=== PATIENT | male | born 1985 | race Caucasian/White ===

== ENCOUNTER 2023-12-09 20:59 | Inpatient (IN) | payer OTHER ==
[~2023-12-09] VITALS: Ht 165.1 cm; Wt 215.9 kg
[2023-12-09] MEDS ORDERED: BUMETANIDE 1MG/4ML VIAL IV ONE (21:30)
[2023-12-09 22:37] LABS: BASOPHILS % 0.6 % (0.0-2.0); DIFFERENTIAL COMMENT 0; EOSINOPHILS % 0.7 % (0.0-5.0); HEMATOCRIT. 48.1 % (42.0-52.0); HEMOGLOBIN. 14.9 g/dL (14.0-18.0); LYMPHOCYTES % 18.6 % (20.0-50.0); MEAN CORPUSCULAR HEMOGLOBIN 29.4 pg (28.0-32.0); MEAN CORPUSCULAR VOLUME 94.9 fL (80.0-94.0); MEAN PLATELET VOLUME 10.4 fl (7.4-10.4); MONOCYTES % 7.1 % (2.0-8.0); PLATELET 184 x1000/uL (130-400); RED BLOOD CELL COUNT 5.07 mill/uL (4.7-6.1); RED CELL DISTRIBUTION WIDTH 16.7 % (11.6-14.6); WHITE BLOOD COUNT 13.4 x1000/uL (4.5-11.0)
[2023-12-09 22:47] LABS: INR 1.1; PROTHROMBIN TIME 11.9 sec (9.6-11.0)
[2023-12-09 22:52] LABS: CHLORIDE 99 mEq/L (98-107); POTASSIUM 4.1 mEq/L (3.5-5.1); SODIUM 142 mEq/L (136-145)
[2023-12-09 22:53] LABS: CALCIUM 9.2 mg/dL (8.7-10.4); CARBON DIOXIDE 39 mEq/L (21-32)
[2023-12-09 22:58] LABS: CREATININE 1.7 mg/dL (0.6-1.3); GLUCOSE 104 mg/dL (70-105); UREA NITROGEN BLOOD 20 mg/dL (9-23)
[2023-12-09 22:59] LABS: TROPONIN I HIGH SENSITIVITY 17 ng/L (3.0-53)
[2023-12-10] VITALS (9 sets, daily range): BP systolic 98–161; BP diastolic 62–122; PULSE 90–128; RESP 14–26; TEMP 97.8–98.2
[2023-12-10 00:20] LABS: TROPONIN I HIGH SENSITIVITY 16 ng/L (3.0-53)
[2023-12-10] MEDS: BUMETANIDE 1MG/4ML VIAL IV NR (00:30)
[2023-12-10] MEDS ORDERED: IPRATROPIUM/ALBUTEROL 0.5-3(2.5)MG/3ML NEB HHN PRN (04:15)
[2023-12-10] MEDS ORDERED: ONDANSETRON HCL 4MG/2ML INJ IV PRN (04:15)
[2023-12-10] MEDS ORDERED: ACETAMINOPHEN 325MG TABLET PO PRN (04:15)
[2023-12-10] MEDS ORDERED: DOCUSATE SODIUM 100MG CAPSULE PO PRN (04:15)
[2023-12-10] MEDS ORDERED: MAGNESIUM/ALUMINUM HYDROXIDE/SIMETHICONE 30ML UDC PO PRN (04:15)
[2023-12-10 06:30] LABS: HEMATOCRIT 47.6 % (42.0-52.0); HEMOGLOBIN 14.8 g/dL (14.0-18.0); MEAN CORPUSCULAR HEMOGLOBIN 29.5 pg (28.0-32.0); MEAN CORPUSCULAR VOLUME 95.2 fL (80.0-94.0); PLATELET 188 x1000/uL (130-400); RED CELL DISTRIBUTION WIDTH 16.6 % (11.6-14.6); WHITE BLOOD COUNT 11.8 x1000/uL (4.5-11.0)
[2023-12-10 06:44] LABS: CHLORIDE 101 mEq/L (98-107); POTASSIUM 3.8 mEq/L (3.5-5.1); SODIUM 145 mEq/L (136-145)
[2023-12-10 06:45] LABS: CALCIUM 9.6 mg/dL (8.7-10.4)
[2023-12-10 06:50] LABS: CREATININE 1.1 mg/dL (0.6-1.3); GLUCOSE 102 mg/dL (70-105); TRIGLYCERIDE 86 mg/dL (0-150); UREA NITROGEN BLOOD 17 mg/dL (9-23)
[2023-12-10 06:51] LABS: LDL CHOLESTEROL 125 mg/dL (5-100)
[2023-12-10 06:52] LABS: CHOLESTEROL 168 mg/dL (<200); HDL CHOLESTEROL 32 mg/dL (>55); PHOSPHORUS 5.8 mg/dL (2.5-4.9)
[2023-12-10 06:53] LABS: T4 FREE 1.03 ng/dL (0.89-1.76); THYROID STIMULATING HORMONE 1.62 uIU/mL (0.55-4.78)
[2023-12-10 07:09] LABS: CLARITY URINE CLEAR (CLEAR); COLOR URINE YELLOW (YELLOW); GLUCOSE URINE NEGATIVE (NEGATIVE); KETONES URINE NEGATIVE (NEGATIVE); LEUKOCYTE ESTERASE URINE NEGATIVE (NEGATIVE); NITRITE URINE NEGATIVE (NEGATIVE); OCCULT BLOOD URINE NEGATIVE (NEGATIVE); PH URINE 5.5 (4.5-8.0); PROTEIN URINE TRACE (NEGATIVE); SPECIFIC GRAVITY URINE 1.017 (1.005-1.030); UROBILINOGEN URINE 0.2 E.U./dL (0.2-1.0)
[2023-12-10 07:26] LABS: *AMPHETAMINES SCREEN URINE NEGATIVE (NEGATIVE); *BENZODIAZEPINES SCREEN URINE NEGATIVE (NEGATIVE)
[2023-12-10 07:27] LABS: *BARBITURATES SCREEN URINE NEGATIVE (NEGATIVE); *COCAINE SCREEN URINE NEGATIVE (NEGATIVE); CANNABINOID URINE SCREEN NEGATIVE (NEGATIVE); ECSTASY MDMA SCREEN URINE NEGATIVE (NEGATIVE); METHADONE URINE SCREEN NEGATIVE (NEGATIVE); OPIATES URINE SCREEN NEGATIVE (NEGATIVE); PHENCYCLIDINE URINE SCREEN NEGATIVE (NEGATIVE)
[2023-12-10 07:56] LABS: ALANINE AMINOTRANSFERASE 37 IU/L (10-49); ASPARTATE AMINOTRANSFERASE 36 IU/L (<34)
[2023-12-10 07:57] LABS: ALBUMIN 3.7 g/dL (3.2-4.8); BILIRUBIN DIRECT 0.2 mg/dL (<=3.0); BILIRUBIN TOTAL 0.5 mg/dL (0.1-1.0); PROTEIN TOTAL 5.9 g/dL (6.0-8.3)
[2023-12-10 08:01] LABS: CARBON DIOXIDE > 40 mEq/L (21-32)
[2023-12-10] MEDS: BUMETANIDE 1MG/4ML VIAL IV SCH (09:00)
[2023-12-10 09:08] LABS: BACTERIA URINE NONE SEEN; RBC URINE 0-2 /hpf (0-2); SQUAMOUS EPITHELIAL CELL URINE RARE /lpf (RARE/1+); URIC ACID CRYSTALS URINE 2+ /lpf; WBC URINE 0-2 /hpf (0-2); YEAST URINE NONE SEEN
[2023-12-10 09:08] LABS: VITAMIN B12 SERUM 163 pg/mL (211-911)
[2023-12-10] MEDS: ENOXAPARIN 40MG/0.4ML SYR SUBCUT SCH (09:48)
[2023-12-10 10:32] LABS: BG BASE EXCESS 10.7 mmol/L (-2.0-2.0); BG CARBOXYHEMOGLOBIN 0.9 % (0.5-1.5); BG DEOXYHEMOGLOBIN 7.1 % (0.0-5.0); BG FRACTION INSPIRED OXYGEN 36; BG HCO3 ACT 43.2 mmol/L (22.0-26.0); BG METHEMOGLOBIN 0.4 % (0.0-1.5); BG OXYGEN SATURATION 92.8 % (92.0-98.5); BG OXYHEMOGLOBIN 91.6 % (94.0-97.0); BG PCO2 100.8 mmHg (35.0-45.0); BG PO2 75.7 mmHg (75.0-100.0); BG SAMPLE SITE RIGHT RADIAL; BG VENT MODE NASAL CANNULA
[2023-12-10] MEDS ORDERED: ATORVASTATIN CALCIUM 40MG TABLET PO SCH (21:00)
[2023-12-10] MEDS: FAMOTIDINE 20MG TABLET PO SCH (21:51)
[2023-12-10] MEDS: ATORVASTATIN CALCIUM 40MG TABLET PO SCH (21:51)
[2023-12-10 22:04] LABS: BG BASE EXCESS 14.7 mmol/L (-2.0-2.0); BG DEOXYHEMOGLOBIN 5.6 % (0.0-5.0); BG FRACTION INSPIRED OXYGEN 40; BG HCO3 ACT 48.5 mmol/L (22.0-26.0); BG METHEMOGLOBIN 0.5 % (0.0-1.5); BG OXYGEN SATURATION 94.3 % (92.0-98.5); BG OXYHEMOGLOBIN 92.9 % (94.0-97.0); BG PCO2 114.8 mmHg (35.0-45.0); BG PH 7.244 (7.350-7.450); BG PO2 81.8 mmHg (75.0-100.0); BG SAMPLE SITE RIGHT RADIAL; BG TOTAL HEMOGLOBIN 16.1 g/dL (12.0-18.0); BG VENT MODE MASK - BIPAP
[2023-12-11] VITALS (16 sets, daily range): BP systolic 131–183; BP diastolic 66–121; PULSE 82–100; RESP 15–28; TEMP 97–98.1
[2023-12-11] MEDS: CLONIDINE 0.1MG TABLET PO PRN (01:45)
[2023-12-11 08:35] LABS: BG CARBOXYHEMOGLOBIN 1.2 % (0.5-1.5); BG DEOXYHEMOGLOBIN 3.5 % (0.0-5.0); BG FRACTION INSPIRED OXYGEN 50; BG HCO3 ACT 47.6 mmol/L (22.0-26.0); BG METHEMOGLOBIN 0.4 % (0.0-1.5); BG OXYGEN SATURATION 96.4 % (92.0-98.5); BG OXYHEMOGLOBIN 94.9 % (94.0-97.0); BG PCO2 115.2 mmHg (35.0-45.0); BG PH 7.234 (7.350-7.450); BG PO2 96.3 mmHg (75.0-100.0); BG SAMPLE SITE RIGHT RADIAL; BG TOTAL HEMOGLOBIN 15.5 g/dL (12.0-18.0); BG TOTAL RESPIRATORY RATE 22 b/min; BG VENT MODE MASK - BIPAP
[2023-12-11] MEDS: AMLODIPINE 5MG TABLET PO SCH (09:58)
[2023-12-11 10:18] LABS: BASOPHILS % 0.7 % (0.0-2.0); DIFFERENTIAL COMMENT 0; EOSINOPHILS % 1.2 % (0.0-5.0); HEMATOCRIT. 47.7 % (42.0-52.0); HEMOGLOBIN. 14.3 g/dL (14.0-18.0); LYMPHOCYTES % 15.8 % (20.0-50.0); MEAN CORPUSCULAR HGB CONC 29.9 g/dL (31.0-37.0); MEAN PLATELET VOLUME 10.3 fl (7.4-10.4); MONOCYTES % 8.2 % (2.0-8.0); NEUTROPHILS % 74.1 % (40.0-76.0); PLATELET 174 x1000/uL (130-400); RED BLOOD CELL COUNT 4.91 mill/uL (4.7-6.1); RED CELL DISTRIBUTION WIDTH 16.3 % (11.6-14.6); WHITE BLOOD COUNT 10.8 x1000/uL (4.5-11.0)
[2023-12-11 10:32] LABS: CHLORIDE 98 mEq/L (98-107); SODIUM 142 mEq/L (136-145)
[2023-12-11 10:33] LABS: CALCIUM 8.7 mg/dL (8.7-10.4)
[2023-12-11 10:38] LABS: CREATININE 1.1 mg/dL (0.6-1.3); GLUCOSE 147 mg/dL (70-105); UREA NITROGEN BLOOD 12 mg/dL (9-23)
[2023-12-11 10:40] LABS: PHOSPHORUS 4.3 mg/dL (2.5-4.9)
[2023-12-11 10:55] LABS: CARBON DIOXIDE > 40 mEq/L (21-32)
[2023-12-11] MEDS ORDERED: FLUTICASONE/VILANTEROL 200-25 BLST.W.DEV ORI SCH (13:00)
[2023-12-11] MEDS: ACETAMINOPHEN 325MG TABLET PO PRN (18:38)
[2023-12-11] MEDS: ALBUTEROL (0.083%) 2.5MG/3ML NEB HHN SCH (20:32)
[2023-12-11] MEDS: BUDESONIDE 0.5MG/2ML NEB HHN SCH (20:32)
[2023-12-12] VITALS (21 sets, daily range): BP systolic 133–175; BP diastolic 66–114; PULSE 75–94; RESP 10–28; TEMP 96.9–98.5; O2SAT 96
[2023-12-12 07:56] LABS: BASOPHILS % 0.5 % (0.0-2.0); DIFFERENTIAL COMMENT 0; EOSINOPHILS % 1.5 % (0.0-5.0); HEMATOCRIT. 46.6 % (42.0-52.0); HEMOGLOBIN. 14.5 g/dL (14.0-18.0); LYMPHOCYTES % 17.9 % (20.0-50.0); MEAN CORPUSCULAR HEMOGLOBIN 29.7 pg (28.0-32.0); MEAN CORPUSCULAR HGB CONC 31.2 g/dL (31.0-37.0); MEAN CORPUSCULAR VOLUME 95.5 fL (80.0-94.0); MEAN PLATELET VOLUME 10.3 fl (7.4-10.4); MONOCYTES % 7.6 % (2.0-8.0); NEUTROPHILS % 72.5 % (40.0-76.0); PLATELET 157 x1000/uL (130-400); RED BLOOD CELL COUNT 4.88 mill/uL (4.7-6.1); WHITE BLOOD COUNT 10.4 x1000/uL (4.5-11.0)
[2023-12-12 08:07] LABS: CHLORIDE 98 mEq/L (98-107); POTASSIUM 3.8 mEq/L (3.5-5.1); SODIUM 141 mEq/L (136-145)
[2023-12-12 08:08] LABS: CALCIUM 8.7 mg/dL (8.7-10.4)
[2023-12-12 08:13] LABS: CREATININE 0.9 mg/dL (0.6-1.3); GLUCOSE 109 mg/dL (70-105); UREA NITROGEN BLOOD 10 mg/dL (9-23)
[2023-12-12 08:31] LABS: CARBON DIOXIDE > 40 mEq/L (21-32)
[2023-12-12] MEDS: AMLODIPINE 10MG TABLET PO SCH (09:20)
[2023-12-12] MEDS: LOSARTAN 50 MG TABLET PO SCH (09:20)
[2023-12-12] MEDS: HYDRALAZINE HCL 50MG TABLET PO SCH (12:03)
[2023-12-12] MEDS: KETOROLAC 15MG/ML VIAL IV NR (12:09)
[2023-12-12] MEDS ORDERED: HYDRALAZINE HCL 50MG TABLET PO SCH (14:00)
[2023-12-12 15:09] LABS: BG BASE EXCESS 13.7 mmol/L (-2.0-2.0); BG CARBOXYHEMOGLOBIN 1.1 % (0.5-1.5); BG DEOXYHEMOGLOBIN 4.3 % (0.0-5.0); BG FRACTION INSPIRED OXYGEN 28; BG METHEMOGLOBIN 0.3 % (0.0-1.5); BG OXYGEN SATURATION 95.6 % (92.0-98.5); BG OXYHEMOGLOBIN 94.3 % (94.0-97.0); BG PCO2 100.1 mmHg (35.0-45.0); BG PO2 86.9 mmHg (75.0-100.0); BG SAMPLE SITE RIGHT RADIAL; BG TOTAL HEMOGLOBIN 15.8 g/dL (12.0-18.0); BG VENT MODE NASAL CANNULA
[2023-12-13] VITALS (16 sets, daily range): BP systolic 127–174; BP diastolic 66–96; PULSE 76–98; RESP 7–25; TEMP 97.5–98.6; O2SAT 95–98
[2023-12-13] MEDS: KETOROLAC 15MG/ML VIAL IV NR (05:15)
[2023-12-13 07:13] LABS: CHLORIDE 98 mEq/L (98-107); POTASSIUM 3.9 mEq/L (3.5-5.1); SODIUM 142 mEq/L (136-145)
[2023-12-13 07:15] LABS: BASOPHILS % 0.4 % (0.0-2.0); CALCIUM 9.1 mg/dL (8.7-10.4); DIFFERENTIAL COMMENT 0; EOSINOPHILS % 1.5 % (0.0-5.0); HEMATOCRIT. 48.3 % (42.0-52.0); HEMOGLOBIN. 14.7 g/dL (14.0-18.0); LYMPHOCYTES % 17.5 % (20.0-50.0); MEAN CORPUSCULAR HEMOGLOBIN 29.4 pg (28.0-32.0); MEAN CORPUSCULAR HGB CONC 30.4 g/dL (31.0-37.0); MEAN CORPUSCULAR VOLUME 96.7 fL (80.0-94.0); MEAN PLATELET VOLUME 10.8 fl (7.4-10.4); MONOCYTES % 6.1 % (2.0-8.0); NEUTROPHILS % 74.5 % (40.0-76.0); PLATELET 160 x1000/uL (130-400); RED BLOOD CELL COUNT 4.99 mill/uL (4.7-6.1); RED CELL DISTRIBUTION WIDTH 16.4 % (11.6-14.6); WHITE BLOOD COUNT 11.1 x1000/uL (4.5-11.0)
[2023-12-13 07:19] LABS: CREATININE 0.9 mg/dL (0.6-1.3); GLUCOSE 100 mg/dL (70-105); UREA NITROGEN BLOOD 8 mg/dL (9-23)
[2023-12-13 08:46] LABS: CARBON DIOXIDE > 40 mEq/L (21-32)
[2023-12-13] MEDS: LOSARTAN 50 MG TABLET PO SCH (09:00)
[2023-12-13] MEDS: HYDRALAZINE HCL 50MG TABLET PO SCH (14:06)
[2023-12-13] MEDS ORDERED: FAMO20TA8 PO (17:43)
[2023-12-13] MEDS ORDERED: HYDR50TA39 PO (17:43)
[2023-12-13] MEDS ORDERED: LIP40 PO (17:43)
[2023-12-13] MEDS ORDERED: AMLO10TA80 PO (17:43)
[2023-12-13] MEDS ORDERED: TOPUD PO (17:43)
[2023-12-13] MEDS ORDERED: ALBU6.7H15 INH (17:43)
[2023-12-13] MEDS ORDERED: BUME1TAB9 PO (17:43)
[2023-12-13] MEDS ORDERED: LOSA50TA41 PO (17:43)
== END 2023-12-13 20:30 | disposition home or self-care (01) | DRG 291 ==
LOC: ER 20:59 → 5WST 12-10 02:31 → 5EST 12-10 12:40
PROVIDERS: ADMIT Internal Medicine; ATTEND Internal Medicine
PROC: 5A09357 Assistance with Respiratory Ventilation, Less than 24 Consecutive Hours, Continuous Positive Airway Pressure (ICD-10-PCS; principal; 2023-12-10)
PROC: 5A09357 Assistance with Respiratory Ventilation, Less than 24 Consecutive Hours, Continuous Positive Airway Pressure (ICD-10-PCS; 2023-12-11)
PROC: 5A09357 Assistance with Respiratory Ventilation, Less than 24 Consecutive Hours, Continuous Positive Airway Pressure (ICD-10-PCS; 2023-12-12)
DX: I11.0 Hypertensive heart disease with heart failure (principal); I50.33 Acute on chronic diastolic (congestive) heart failure; J96.21 Acute and chronic respiratory failure with hypoxia; J96.22 Acute and chronic respiratory failure with hypercapnia; N17.9 Acute kidney failure, unspecified; E87.29 Other acidosis; Z68.43 Body mass index [BMI] 50.0-59.9, adult; E66.2 Morbid (severe) obesity with alveolar hypoventilation; T50.2X5A Adverse effect of carbonic-anhydrase inhibitors, benzothiadiazides and other diuretics, initial encounter; D72.829 Elevated white blood cell count, unspecified; E78.5 Hyperlipidemia, unspecified; I27.20 Pulmonary hypertension, unspecified; Z79.899 Other long term (current) drug therapy; Z91.199 Patient's noncompliance with other medical treatment and regimen due to unspecified reason; Y92.89 Other specified places as the place of occurrence of the external cause
CPT/HCPCS: 36415; 36600; 71045; 80048; 80061; 80076; 80305; 81003; 82375; 82607; 82746; 82805; 83036; 83605; 83735; 83880; 84100; 84145; 84439; 84443; 84484; 85025; 85027; 85379; 93005; 93306; 93970; 94640; 94660; 99291; J1650; J1885; J3490; J7626